=== PATIENT | male | born 1960 | race Caucasian/White ===

== ENCOUNTER → 2018-04-07 | Outpatient (CLI) | payer OTHER ==
[~2018-04-07] MED LIST: AMAN100T PO; AMIO200T PO/NG; AMIO400T5 PO; APIX5TAB PO; APIX5TAB PO/NG; ASPI-515 PO; ASPI-621 PO; ATEN25TA PO; ATEN50TA41 PO; CALC1TAB86 PO; CENTRUM PO; CHOL200024 PO; DIGO250T PO; DOCU-131 PO; FURO-93 PO; GLUC1TAB55 PO; LACT1TAB8 PO; NIAC250T2 PO; NYST1000 PO; OMEG1CAP23 PO; OXYC1TAB7 PO; POTA10TA5 PO; SIMV5TAB5 PO
== END | disposition home or self-care (01) ==
LOC: CFH 10:43
PROVIDERS: ATTEND Family Medicine
DX: M47.894 Other spondylosis, thoracic region (principal); M41.9 Scoliosis, unspecified; M15.0 Primary generalized (osteo)arthritis
CPT/HCPCS: 72072; 72110

== ENCOUNTER 2020-02-12 05:02 | Inpatient (IN) | payer OTHER ==
[~2020-02-12] VITALS: Ht 188 cm; Wt 133.0 kg
[~2020-02-12 05:02] MED LIST changes: -ASPI-621 PO; +ASPI81TA45 PO; +CALC-725 PO; -CALC1TAB86 PO; -DIGO250T PO; +DIGO250T3 PO; -NIAC250T2 PO; +NIAC250T26 PO; +SIMV5TAB14 PO; -SIMV5TAB5 PO
--- NOTE | 2020-02-12 05:10 | NUR ---
THIS IS A 59Y M THAT COMES IN FOR SHARP PAIN "JUST TO THE RIGHT OF MY BELLY BUTTON" X 1 DAY. +NAUSEA, DENIES VOMITTING/DIARRHEA. PT CONNECTED TO ALL MONITORING VSS HR TACHY AWARE.
--- NOTE | 2020-02-12 05:19 | NUR ---
AT BEDSIDE FOR ASSESSMENT
[2020-02-12] MEDS ORDERED: HYDROmorphone 1 MG/ML, 1ML INJ ONE ×2 (05:29→06:06)
[2020-02-12] MEDS ORDERED: ONDANSETRON 2MG/ML, 2ML ONE (05:29)
[2020-02-12] MEDS ORDERED: ONDANSETRON 2MG/ML, 2ML IVPush ONE (05:30)
[2020-02-12] MEDS ORDERED: SODIUM CHLORIDE 0.9% 1,000ML IVBOLUS ONE ×2 (05:30→12:30)
[2020-02-12] MEDS: HYDROmorphone 1 MG/ML, 1ML INJ IVPush PRN ×2 (05:32→06:08)
--- NOTE | 2020-02-12 05:34 | NUR ---
PT MEDICATED PER OCT, 5 RIGHTS VERIFIED.
[2020-02-12 05:45] LABS: MEAN CORPUSCULAR HEMOGLOBIN 35.3 pg (27.5-34.5); MEAN CORPUSCULAR HGB CONC 33.8 g/dL (33.2-36.2); MEAN CORPUSCULAR VOLUME 104.6 fL (81-97); MEAN PLATELET VOLUME 7.2 fL (7.4-10.4); PLATELET COUNT 161 x10^3/uL (130-400); RED BLOOD COUNT 5.01 x10^6/uL (4.38-5.82); RED CELL DISTRIBUTION WIDTH 18.3 % (9.4-14.8)
[2020-02-12 05:52] LABS: INTERNATIONAL NORMALIZED RATIO 1.05 (0.93-1.1); PROTHROMBIN TIME 11.1 Seconds (9.6-11.5)
[2020-02-12 05:54] LABS: ALANINE AMINOTRANSFERASE 31 U/L (12-78); ALBUMIN 3.2 g/dL (3.4-5.0); ANION GAP 15 mmol/L (5-15); CALCIUM 8.8 mg/dL (8.5-10.1); CHLORIDE 107 mmol/L (98-107); CREATININE 0.73 mg/dL (0.7-1.3)
[2020-02-12] MEDS ORDERED: PIPERACILLIN/TAZO/PMX 3.375GM 50 ML ONE (05:54)
[2020-02-12 05:56] LABS: ALKALINE PHOSPHATASE 75 U/L (45-117); BILIRUBIN,TOTAL 1.2 mg/dL (0.2-1.0); TOTAL PROTEIN 7.3 g/dL (6.4-8.2)
[2020-02-12] MEDS ORDERED: PIPERACILLIN/TAZO/PMX 3.375GM 50 ML IVPB ONE (06:00)
[2020-02-12 06:07] LABS: BASOPHILS # (AUTO) 0.03 x10^3/uL (0-0.1); BASOPHILS % (AUTO) 0 % (0-1); EOSINOPHILS # (AUTO) 0.01 x10^3/uL (0-0.4); EOSINOPHILS % (AUTO) 0 % (1-7); LYMPHOCYTES # (AUTO) 1.15 x10^3/uL (1-3.4); LYMPHOCYTES % (AUTO) 5 % (22-44); MD SCAN; MONOCYTES # (AUTO) 0.78 x10^3/uL (0.2-0.8); MONOCYTES % (AUTO) 4 % (2-9); NEUTROPHILS # (AUTO) 20.36 x10^3/uL (1.8-6.8); NEUTROPHILS % (AUTO) 91 % (42-75)
--- NOTE | 2020-02-12 06:09 | NUR ---
ABX STARTED LAB CONFIRMED SECOND SET OF CULTURES HAS BEEN DRAWN BEFORE ABX START AT THIS TIME
--- NOTE | 2020-02-12 06:10 | NUR ---
PT TO CT
[2020-02-12] MEDS ORDERED: OMNIPAQUE 350 MG/ML, 100ML BOTTLE ONE (06:24)
--- NOTE | 2020-02-12 06:30 | NUR ---
PT BACK FROM CT
--- NOTE | 2020-02-12 06:53 | NUR ---
report received from estela dennis.
--- NOTE | 2020-02-12 07:28 | NUR ---
SEPSIS FLOW SHEET COMPLETED AND DISCUSSED WITH EDMD.
[2020-02-12] MEDS ORDERED: MULT-257 PO (08:07)
[2020-02-12] MEDS ORDERED: METO25TA35 PO (08:07)
[2020-02-12] MEDS ORDERED: POTA10TA12 PO (08:07)
[2020-02-12] MEDS ORDERED: EYE HEALTH (08:08)
[2020-02-12] MEDS ORDERED: UBID30CA9 PO (08:08)
[2020-02-12] MEDS ORDERED: CYCL-259 PO (08:09)
[2020-02-12] MEDS ORDERED: FLUO15CR SUBD (08:10)
--- NOTE | 2020-02-12 08:16 | NUR ---
URINAL GIVEN PER REQUEST AT THIS TIME.
--- NOTE | 2020-02-12 08:27 | NUR ---
INDRA ERAZO DID COVID TEST AND SENT TO LAB AT THIS TIME.
--- NOTE | 2020-02-12 08:28 | NUR ---
THIS RN CALLED FOR REPORT AT THIS TIME. PRIMARY RN IS BUSY AND WILL CALL BACK.
--- NOTE | 2020-02-12 08:41 | NUR ---
REPORT GIVEN TO CLAUS ERAZO. ALL QUESTIONS ANSWERED.
--- NOTE | 2020-02-12 09:08 | NUR ---
REPORT GIVEN TO RASHAD ERAZO. ALL QUESTIONS ANSWERED.
[2020-02-12 09:39] VITALS: BP 163/91
[2020-02-12] MEDS ORDERED: FENTANYL PF 250 MCG/5ML ONE (10:14)
[2020-02-12] MEDS ORDERED: MIDAZOLAM 1 MG/ML, 2ML ONE (10:14)
[2020-02-12] MEDS ORDERED: PROPOFOL 10 MG/ML, 20ML ONE (10:15)
[2020-02-12] MEDS ORDERED: PHENYLEPHRINE 10 MG/ML ONE (10:25)
[2020-02-12] MEDS ORDERED: ROCURONIUM 10MG/ML,5ML ONE (10:28)
[2020-02-12] MEDS ORDERED: ONDANSETRON 2MG/ML, 2ML IVPush PRN ×2 (10:30→11:00)
[2020-02-12] MEDS ORDERED: hydrALAzine 20 MG/ML, 1ML IV PRN (10:30)
[2020-02-12] MEDS ORDERED: LABETALOL 5MG/ML, 20ML IV PRN (10:30)
[2020-02-12] MEDS ORDERED: HYDROmorphone 1 MG/ML, 1ML INJ IVPush PRN (10:30)
[2020-02-12] MEDS ORDERED: PROMETHAZINE 25 MG/ML, 1ML IVPush PRN (10:30)
[2020-02-12] MEDS ORDERED: MEPERIDINE/PF 25MG/0.5ML IVPush PRN (10:30)
[2020-02-12] MEDS ORDERED: OXYcodone 5 MG/5 ML ORAL.SOL UDC PO PRN (10:30)
[2020-02-12] MEDS ORDERED: SODIUM CHLORIDE 0.9% 1,000 ML IV SCH ×2 (10:38→11:00)
[2020-02-12] MEDS ORDERED: BUPIVACAINE/PF-EPI 0.5% 1:200K ONE (10:40)
[2020-02-12] MEDS ORDERED: ACETAMINOPHEN 325 MG TABLET PO PRN (11:00)
[2020-02-12] MEDS ORDERED: morphine SULFATE 10 MG/ML, 1ML IVPush PRN (11:00)
[2020-02-12] MEDS ORDERED: HYDROmorphone 2 MG/ML, 1ML IVPush PRN ×2 (11:00→14:30)
[2020-02-12] MEDS ORDERED: PROMETHAZINE 25 MG/ML, 1ML IM PRN (11:00)
[2020-02-12] MEDS ORDERED: hydrALAzine 20 MG/ML, 1ML IVPush PRN (11:00)
[2020-02-12] MEDS ORDERED: LABETALOL 5MG/ML, 20ML IVPush PRN (11:00)
[2020-02-12] MEDS ORDERED: SUCCINYLCHOLINE 20 MG/ML, 10ML ONE (11:13)
[2020-02-12] MEDS ORDERED: METOCLOPRAMIDE 5 MG/ML, 2ML ONE (11:28)
[2020-02-12] MEDS ORDERED: METOPROLOL 1 MG/ML, 5ML ONE (11:39)
[2020-02-12] MEDS ORDERED: hydrALAzine 20 MG/ML, 1ML ONE (11:42)
[2020-02-12] MEDS ORDERED: FENTANYL PF 100 MCG/2ML ONE (12:03)
[2020-02-12] MEDS ORDERED: OXYcodone 5 MG/5 ML ORAL.SOL UDC ONE (12:03)
[2020-02-12] MEDS ORDERED: LABETALOL 5MG/ML, 20ML ONE (12:04)
[2020-02-12] MEDS: FENTANYL PF 100 MCG/2ML IV PRN ×2 (12:05→12:20)
[2020-02-12] MEDS: SODIUM CHLORIDE 0.9% 1,000 ML IV SCH ×2 (13:08→16:10)
[2020-02-12] MEDS: METOPROLOL TARTRATE 100 MG TAB PO SCH (13:12)
[2020-02-12] MEDS: MEROPENEM 1 GM in SODIUM CHLORIDE 0.9% 100 ML IV SCH ×2 (13:18→18:20)
[2020-02-12 13:32] VITALS: BP 118/74
[2020-02-12] MEDS ORDERED: ENOXAPARIN 40 MG/0.4 ML SQ SCH (14:30)
[2020-02-12] MEDS ORDERED: CYCLOBENZAPRINE 10 MG TABLET PO SCH (16:00)
[2020-02-12] MEDS: morphine SULFATE 10 MG/ML, 1ML IV PRN ×3 (16:09→23:00)
[2020-02-12] MEDS: POTASSIUM CHLORIDE 20 MEQ in LACTATED RINGERS 1,000 ML IV SCH (18:27)
[2020-02-12 19:49] VITALS: BP 108/68
[2020-02-13 02:00] LABS: ALANINE AMINOTRANSFERASE 19 U/L (12-78); ALBUMIN 2.3 g/dL (3.4-5.0); ANION GAP 5 mmol/L (5-15); CALCIUM 7.8 mg/dL (8.5-10.1); CHLORIDE 108 mmol/L (98-107); CREATININE 0.87 mg/dL (0.7-1.3)
[2020-02-13 02:02] LABS: ALKALINE PHOSPHATASE 51 U/L (45-117); BILIRUBIN,TOTAL 1.4 mg/dL (0.2-1.0); TOTAL PROTEIN 5.7 g/dL (6.4-8.2)
[2020-02-13 02:14] LABS: MEAN CORPUSCULAR HEMOGLOBIN 35.6 pg (27.5-34.5); MEAN CORPUSCULAR VOLUME 104.5 fL (81-97); MEAN PLATELET VOLUME 7.6 fL (7.4-10.4); PLATELET COUNT 126 x10^3/uL (130-400); RED BLOOD COUNT 4.55 x10^6/uL (4.38-5.82); RED CELL DISTRIBUTION WIDTH 18.1 % (9.4-14.8)
[2020-02-13 02:27] LABS: MD YES
[2020-02-13 02:31] LABS: ANISOCYTOSIS 1+; BAND#(MANUAL) 2.88 x10^3/uL; BANDS%(MANUAL) 14 % (0-7); LYMPH#(MANUAL) 1.03 x10^3/uL (1-3.4); LYMPHS% (MANUAL) 5 % (22-44); MONOS#(MANUAL) 0.82 x10^3/uL (0.3-2.7); MONOS% (MANUAL) 4 % (2-9); SEG#(MANUAL) 15.86 x10^3/uL (1.8-6.8); SEGS% (MANUAL) 77 % (42-75)
[2020-02-13 02:32] LABS: <PLATELET ESTIMATE> DECREASED; <PLT MORPHOLOGY> NORMAL PLT MORPH
[2020-02-13] MEDS: POTASSIUM CHLORIDE 20 MEQ in LACTATED RINGERS 1,000 ML IV SCH ×3 (02:34→20:46)
[2020-02-13 02:35] VITALS: BP 115/75
[2020-02-13] MEDS: MEROPENEM 1 GM in SODIUM CHLORIDE 0.9% 100 ML IV SCH ×3 (02:35→19:16)
[2020-02-13] MEDS: HYDROcodone/APAP 5/325 TABLET PO PRN ×5 (02:41→20:45)
[2020-02-13 06:57] VITALS: BP 111/70
[2020-02-13] MEDS: METOPROLOL TARTRATE 100 MG TAB PO SCH (08:59)
[2020-02-13] MEDS: ENOXAPARIN 40 MG/0.4 ML SQ SCH (11:09)
[2020-02-13] MEDS: morphine SULFATE 10 MG/ML, 1ML IV PRN (11:58)
[2020-02-13 12:38] VITALS: BP_SYST 122; BP_SYST 139; BP_DIAS 78; BP_DIAS 86
[2020-02-13] MEDS ORDERED: DOCUSATE 100 MG CAPSULE PO PRN (16:00)
[2020-02-13 19:43] VITALS: BP 103/67
[2020-02-14] MEDS: HYDROcodone/APAP 5/325 TABLET PO PRN ×6 (01:06→22:57)
[2020-02-14 02:06] VITALS: BP 110/70
[2020-02-14] MEDS: MEROPENEM 1 GM in SODIUM CHLORIDE 0.9% 100 ML IV SCH ×3 (03:16→19:24)
[2020-02-14] MEDS: POTASSIUM CHLORIDE 20 MEQ in LACTATED RINGERS 1,000 ML IV SCH ×2 (04:07→12:29)
[2020-02-14 06:08] LABS: BASOPHILS # (AUTO) 0.05 x10^3/uL (0-0.1); BASOPHILS % (AUTO) 0 % (0-1); EOSINOPHILS # (AUTO) 0.12 x10^3/uL (0-0.4); EOSINOPHILS % (AUTO) 1 % (1-7); LYMPHOCYTES % (AUTO) 9 % (22-44); MD NO; MEAN CORPUSCULAR HEMOGLOBIN 35.5 pg (27.5-34.5); MEAN CORPUSCULAR HGB CONC 33.7 g/dL (33.2-36.2); MEAN CORPUSCULAR VOLUME 105.2 fL (81-97); MEAN PLATELET VOLUME 7.9 fL (7.4-10.4); MONOCYTES # (AUTO) 0.42 x10^3/uL (0.2-0.8); MONOCYTES % (AUTO) 3 % (2-9); NEUTROPHILS # (AUTO) 12.43 x10^3/uL (1.8-6.8); NEUTROPHILS % (AUTO) 87 % (42-75); PLATELET COUNT 136 x10^3/uL (130-400); RED BLOOD COUNT 4.28 x10^6/uL (4.38-5.82); RED CELL DISTRIBUTION WIDTH 18.6 % (9.4-14.8)
[2020-02-14 06:21] LABS: ANION GAP 6 mmol/L (5-15); CALCIUM 8.5 mg/dL (8.5-10.1); CHLORIDE 105 mmol/L (98-107)
[2020-02-14 06:26] LABS: ALANINE AMINOTRANSFERASE 15 U/L (12-78); ALKALINE PHOSPHATASE 53 U/L (45-117); BILIRUBIN,TOTAL 0.8 mg/dL (0.2-1.0); CREATININE 0.65 mg/dL (0.7-1.3); TOTAL PROTEIN 5.7 g/dL (6.4-8.2)
[2020-02-14 06:51] VITALS: BP 125/78
[2020-02-14] MEDS: METOPROLOL TARTRATE 100 MG TAB PO SCH (09:20)
[2020-02-14] MEDS: MAGNESIUM HYDROXIDE 8%, 30ML UDC PO PRN (10:05)
[2020-02-14] MEDS: ENOXAPARIN 40 MG/0.4 ML SQ SCH (11:25)
[2020-02-14 12:48] VITALS: BP 102/70
[2020-02-14] MEDS: LACTOBACILLUS CHEW TABLET PO SCH ×2 (14:57→19:24)
[2020-02-14 18:45] VITALS: BP 113/70
[2020-02-15 01:56] VITALS: BP 115/72
[2020-02-15] MEDS: MEROPENEM 1 GM in SODIUM CHLORIDE 0.9% 100 ML IV SCH ×3 (02:45→18:46)
[2020-02-15] MEDS: HYDROcodone/APAP 5/325 TABLET PO PRN ×6 (02:45→23:12)
[2020-02-15] MEDS: POTASSIUM CHLORIDE 20 MEQ in LACTATED RINGERS 1,000 ML IV SCH (04:26)
[2020-02-15] MEDS: MAGNESIUM HYDROXIDE 8%, 30ML UDC PO PRN (04:26)
[2020-02-15 06:20] LABS: MEAN CORPUSCULAR HEMOGLOBIN 35.7 pg (27.5-34.5); MEAN CORPUSCULAR HGB CONC 34.4 g/dL (33.2-36.2); MEAN CORPUSCULAR VOLUME 103.8 fL (81-97); MEAN PLATELET VOLUME 7.7 fL (7.4-10.4); PLATELET COUNT 150 x10^3/uL (130-400); RED BLOOD COUNT 4.11 x10^6/uL (4.38-5.82); RED CELL DISTRIBUTION WIDTH 18.4 % (9.4-14.8)
[2020-02-15 06:24] LABS: ALANINE AMINOTRANSFERASE 12 U/L (12-78); ALBUMIN 1.8 g/dL (3.4-5.0); ANION GAP 4 mmol/L (5-15); CALCIUM 8.3 mg/dL (8.5-10.1); CHLORIDE 102 mmol/L (98-107); CREATININE 0.62 mg/dL (0.7-1.3)
[2020-02-15 06:27] LABS: ALKALINE PHOSPHATASE 51 U/L (45-117); BILIRUBIN,TOTAL 0.6 mg/dL (0.2-1.0); TOTAL PROTEIN 5.5 g/dL (6.4-8.2)
[2020-02-15 07:20] LABS: BASOPHILS # (AUTO) 0.03 x10^3/uL (0-0.1); BASOPHILS % (AUTO) 0 % (0-1); EOSINOPHILS # (AUTO) 0.15 x10^3/uL (0-0.4); EOSINOPHILS % (AUTO) 1 % (1-7); LYMPHOCYTES # (AUTO) 0.76 x10^3/uL (1-3.4); LYMPHOCYTES % (AUTO) 7 % (22-44); MD SCAN; MONOCYTES # (AUTO) 0.62 x10^3/uL (0.2-0.8); MONOCYTES % (AUTO) 5 % (2-9); NEUTROPHILS # (AUTO) 10.09 x10^3/uL (1.8-6.8); NEUTROPHILS % (AUTO) 87 % (42-75)
[2020-02-15] MEDS: LACTOBACILLUS CHEW TABLET PO SCH ×3 (08:43→21:16)
[2020-02-15] MEDS: METOPROLOL TARTRATE 100 MG TAB PO SCH (08:43)
[2020-02-15 09:01] VITALS: BP 155/77
[2020-02-15] MEDS: ENOXAPARIN 40 MG/0.4 ML SQ SCH (11:33)
[2020-02-15] MEDS ORDERED: PINK LADY ENEMA 490 ML BOTTLE PR ONE (12:00)
[2020-02-15] MEDS: LACTATED RINGERS 1,000 ML IV SCH (15:34)
[2020-02-15 15:59] VITALS: BP 141/93
[2020-02-15 19:52] VITALS: BP 119/74
[2020-02-15 22:11] VITALS: BP 130/84
[2020-02-16 00:56] VITALS: BP 136/81
[2020-02-16] MEDS: MEROPENEM 1 GM in SODIUM CHLORIDE 0.9% 100 ML IV SCH ×3 (03:06→21:00)
[2020-02-16] MEDS: HYDROcodone/APAP 5/325 TABLET PO PRN ×6 (03:10→23:24)
[2020-02-16] MEDS: LACTATED RINGERS 1,000 ML IV SCH (04:47)
[2020-02-16 05:10] LABS: MEAN CORPUSCULAR HEMOGLOBIN 35.5 pg (27.5-34.5); MEAN CORPUSCULAR HGB CONC 34.3 g/dL (33.2-36.2); MEAN CORPUSCULAR VOLUME 103.7 fL (81-97); MEAN PLATELET VOLUME 7.4 fL (7.4-10.4); PLATELET COUNT 163 x10^3/uL (130-400); RED BLOOD COUNT 4.35 x10^6/uL (4.38-5.82); RED CELL DISTRIBUTION WIDTH 18.1 % (9.4-14.8)
[2020-02-16 05:17] LABS: ALANINE AMINOTRANSFERASE 12 U/L (12-78); ALBUMIN 1.9 g/dL (3.4-5.0); ANION GAP 10 mmol/L (5-15); CALCIUM 8.1 mg/dL (8.5-10.1); CHLORIDE 103 mmol/L (98-107); CREATININE 0.46 mg/dL (0.7-1.3)
[2020-02-16 05:19] LABS: ALKALINE PHOSPHATASE 59 U/L (45-117); BILIRUBIN,TOTAL 0.6 mg/dL (0.2-1.0); TOTAL PROTEIN 5.7 g/dL (6.4-8.2)
[2020-02-16 05:50] LABS: BASOPHILS # (AUTO) 0.01 x10^3/uL (0-0.1); BASOPHILS % (AUTO) 0 % (0-1); EOSINOPHILS # (AUTO) 0.16 x10^3/uL (0-0.4); EOSINOPHILS % (AUTO) 2 % (1-7); LYMPHOCYTES # (AUTO) 0.54 x10^3/uL (1-3.4); LYMPHOCYTES % (AUTO) 5 % (22-44); MD SCAN; MONOCYTES # (AUTO) 0.22 x10^3/uL (0.2-0.8); MONOCYTES % (AUTO) 2 % (2-9); NEUTROPHILS # (AUTO) 9.01 x10^3/uL (1.8-6.8); NEUTROPHILS % (AUTO) 91 % (42-75)
[2020-02-16 06:19] VITALS: BP 144/92
[2020-02-16 09:10] LABS: CLOSTRIDIUM DIFFICILE ANTIGEN POSITIVE; CLOSTRIDIUM DIFFICILE TOXIN NEGATIVE (Negative)
[2020-02-16] MEDS: METOPROLOL TARTRATE 100 MG TAB PO SCH (09:18)
[2020-02-16] MEDS: LACTOBACILLUS CHEW TABLET PO SCH (09:18)
[2020-02-16] MEDS ORDERED: POTASSIUM PHOSPHATE 44 MEQ in SODIUM CHLORIDE 0.9% 500 ML IV ONE (09:30)
[2020-02-16 12:27] VITALS: BP 131/89
[2020-02-16 19:33] VITALS: BP 165/103
[2020-02-16] MEDS: DOCUSATE 100 MG CAPSULE PO SCH (20:59)
[2020-02-16 21:03] VITALS: BP 146/87
[2020-02-17 00:58] VITALS: BP 139/80
[2020-02-17] MEDS: HYDROcodone/APAP 5/325 TABLET PO PRN ×3 (03:36→13:32)
[2020-02-17] MEDS: MEROPENEM 1 GM in SODIUM CHLORIDE 0.9% 100 ML IV SCH (04:45)
[2020-02-17 04:46] LABS: CHLORIDE 101 mmol/L (98-107)
[2020-02-17 04:51] LABS: BASOPHILS # (AUTO) 0.03 x10^3/uL (0-0.1); BASOPHILS % (AUTO) 0 % (0-1); EOSINOPHILS % (AUTO) 1 % (1-7); LYMPHOCYTES # (AUTO) 0.74 x10^3/uL (1-3.4); LYMPHOCYTES % (AUTO) 10 % (22-44); MD NO; MEAN CORPUSCULAR HEMOGLOBIN 35.1 pg (27.5-34.5); MEAN CORPUSCULAR HGB CONC 34.1 g/dL (33.2-36.2); MEAN CORPUSCULAR VOLUME 102.9 fL (81-97); MEAN PLATELET VOLUME 7.3 fL (7.4-10.4); MONOCYTES # (AUTO) 0.66 x10^3/uL (0.2-0.8); MONOCYTES % (AUTO) 9 % (2-9); NEUTROPHILS # (AUTO) 6.26 x10^3/uL (1.8-6.8); NEUTROPHILS % (AUTO) 80 % (42-75); PLATELET COUNT 174 x10^3/uL (130-400); RED BLOOD COUNT 4.38 x10^6/uL (4.38-5.82); RED CELL DISTRIBUTION WIDTH 17.9 % (9.4-14.8)
[2020-02-17 05:06] LABS: ALANINE AMINOTRANSFERASE 12 U/L (12-78); ALBUMIN 1.8 g/dL (3.4-5.0); ALKALINE PHOSPHATASE 60 U/L (45-117); ANION GAP 8 mmol/L (5-15); BILIRUBIN,TOTAL 0.6 mg/dL (0.2-1.0); CALCIUM 8.4 mg/dL (8.5-10.1); TOTAL PROTEIN 5.7 g/dL (6.4-8.2)
[2020-02-17 06:54] VITALS: BP 132/84
[2020-02-17] MEDS ORDERED: POTASSIUM CHLORIDE 20 MEQ TAB.ER.PRT PO SCH (08:30)
[2020-02-17] MEDS: DOCUSATE 100 MG CAPSULE PO SCH (09:36)
[2020-02-17] MEDS: METOPROLOL TARTRATE 100 MG TAB PO SCH (09:36)
[2020-02-17] MEDS ORDERED: metroNIDAZOLE 500 MG TABLET PO SCH (10:30)
[2020-02-17] MEDS ORDERED: CEFDINIR 300 MG CAPSULE PO SCH (10:30)
[2020-02-17 10:42] VITALS: BP 156/98
[2020-02-17 13:29] VITALS: BP 117/81
[2020-02-17] MEDS ORDERED: CEFD300C37 PO (13:40)
[2020-02-17] MEDS ORDERED: METR500T PO (13:40)
[2020-02-17] MEDS ORDERED: HYDR-3240 PO (14:26)
== END 2020-02-17 14:46 | disposition home or self-care (01) | DRG 853 ==
LOC: ED 05:39 → EDIP 07:34 → 4WST 09:35 → 3N 02-15 22:06
PROVIDERS: ADMIT Hospitalist; ATTEND Hospitalist
PROC: 0DTJ4ZZ Resection of Appendix, Percutaneous Endoscopic Approach (ICD-10-PCS; 2020-02-12)
PROC: 0D9J40Z Drainage of Appendix with Drainage Device, Percutaneous Endoscopic Approach (ICD-10-PCS; principal; 2020-02-12 11:00)
DX: A41.9 Sepsis, unspecified organism (principal); K35.33 Acute appendicitis with perforation, localized peritonitis, and gangrene, with abscess; E87.2 Acidosis; K56.7 Ileus, unspecified; E66.01 Morbid (severe) obesity due to excess calories; R65.20 Severe sepsis without septic shock; E83.39 Other disorders of phosphorus metabolism; E86.0 Dehydration; I48.91 Unspecified atrial fibrillation; K57.90 Diverticulosis of intestine, part unspecified, without perforation or abscess without bleeding; K76.0 Fatty (change of) liver, not elsewhere classified; R73.9 Hyperglycemia, unspecified; T44.7X6A Underdosing of beta-adrenoreceptor antagonists, initial encounter; Z86.14 Personal history of Methicillin resistant Staphylococcus aureus infection; Z95.0 Presence of cardiac pacemaker; Z68.37 Body mass index [BMI] 37.0-37.9, adult; Z98.1 Arthrodesis status; Z03.818 Encounter for observation for suspected exposure to other biological agents ruled out
CPT/HCPCS: 36415; 74018; 74177; 80053; 83605; 83690; 83735; 84100; 84145; 85025; 85610; 85730; 87040; 87324; 87635; 93005; 96361; 96365; 96375; G0378; J1170; J1650; J2185; J2250; J2405; J2543; J2704; J3010; J3480; Q9967; J0330; J0360; J2270; J2370; J2765; J7030; J7040; J7120

== ENCOUNTER → 2020-03-01 | Outpatient (CLI) | payer OTHER ==
[~2020-03-01] MED LIST changes: +CEFD300C37 PO; +CYCL-259 PO; +EYE HEALTH; +FLUO15CR SUBD; +HYDR-3240 PO; +METO25TA35 PO; +METR500T PO; +MULT-257 PO; +OMNIPAQUE 350 MG/ML, 100ML BOTTLE ONE; +POTA10TA12 PO; +UBID30CA9 PO
== END | disposition home or self-care (01) ==
LOC: CFH 11:16
PROVIDERS: ATTEND Surgery
DX: K35.33 Acute appendicitis with perforation, localized peritonitis, and gangrene, with abscess (principal); J98.11 Atelectasis; J90 Pleural effusion, not elsewhere classified; J98.4 Other disorders of lung; Z90.49 Acquired absence of other specified parts of digestive tract
CPT/HCPCS: 74177; Q9967

== ENCOUNTER → 2020-04-06 | Outpatient (CLI) | payer OTHER | END | disposition home or self-care (01) | LOC: CFH 09:28 | PROVIDERS: ATTEND Surgery | DX: K35.20 Acute appendicitis with generalized peritonitis, without abscess (principal) | CPT/HCPCS: 74177; 82565; Q9967 ==

== ENCOUNTER 2020-10-22 09:09 | Day surgery (SDC) | payer OTHER ==
[~2020-10-22] VITALS: Ht 188 cm; Wt 127.3 kg
[~2020-10-22 09:09] MED LIST changes: -ASPI-515 PO; +ASPI-963 PO; -CYCL-259 PO; +CYCL10TA2 PO; +HYDR-1067 PO; -HYDR-3240 PO; -OMNIPAQUE 350 MG/ML, 100ML BOTTLE ONE
[2020-10-22] MEDS ORDERED: SODIUM CHLORIDE 0.9% 1,000 ML IV SCH (09:30)
[2020-10-22 09:35] VITALS: BP 95/68
[2020-10-22] MEDS ORDERED: PLEASE ENTER HEIGHT AND WEIGHT MC SCH (10:00)
[2020-10-22 10:05] LABS: ANION GAP 6 mmol/L (5-15); CHLORIDE 108 mmol/L (98-107); CREATININE 0.87 mg/dL (0.7-1.3)
[2020-10-22] MEDS ORDERED: CALC-55 PO (10:29)
[2020-10-22] MEDS ORDERED: MAGN400T36 PO (10:29)
[2020-10-22 10:31] LABS: BASOPHILS % (AUTO) 2 % (0-1); EOSINOPHILS % (AUTO) 4 % (1-7); LYMPHOCYTES % (AUTO) 23 % (22-44); MD NO; MEAN CORPUSCULAR HEMOGLOBIN 36.6 pg (27.5-34.5); MEAN CORPUSCULAR HGB CONC 35.1 g/dL (33.2-36.2); MEAN PLATELET VOLUME 7.5 fL (7.4-10.4); MONOCYTES % (AUTO) 10 % (2-9); NEUTROPHILS % (AUTO) 61 % (42-75); PLATELET COUNT 170 x10^3/uL (130-400); RED CELL DISTRIBUTION WIDTH 17.3 % (9.4-14.8)
[2020-10-22] MEDS ORDERED: CEFAZOLIN 1,000 MG ONE (10:47)
[2020-10-22] MEDS ORDERED: FENTANYL PF 100 MCG/2ML ONE (10:47)
[2020-10-22] MEDS ORDERED: CEFAZOLIN PMX 1GM/50ML 50 ML ONE (10:47)
[2020-10-22] MEDS ORDERED: MIDAZOLAM 1 MG/ML, 5ML ONE (10:47)
[2020-10-22] MEDS ORDERED: LIDOCAINE 1%, 20ML ONE (10:47)
[2020-10-22] MEDS ORDERED: HOLD MEDICATION MC PRN (12:00)
[2020-10-22] MEDS ORDERED: ACETAMINOPHEN 325 MG TABLET PO PRN (12:00)
[2020-10-22] MEDS ORDERED: CYCLOBENZAPRINE 10 MG TABLET PO SCH (16:00)
[2020-10-22] MEDS ORDERED: SODIUM CHLORIDE FLUSH 10ML SYR IVF SCH (21:00)
[2020-10-23] MEDS ORDERED: ASPIRIN 81 MG TABLET EC PO SCH (09:00)
[2020-10-23] MEDS ORDERED: POTASSIUM CHLORIDE 10 MEQ TABLET.ER PO SCH (09:00)
[2020-10-23] MEDS ORDERED: MULTIVITAMIN 1 TABLET PO SCH (09:00)
[2020-10-23] MEDS ORDERED: METOPROLOL TARTRATE 25 MG TAB PO SCH (09:00)
== END 2020-10-22 13:18 | disposition home or self-care (01) ==
LOC: CACL 09:09
PROVIDERS: ATTEND Internal Medicine Cardiovascular Disease
DX: Z45.02 Encounter for adjustment and management of automatic implantable cardiac defibrillator (principal); I48.0 Paroxysmal atrial fibrillation; Z79.01 Long term (current) use of anticoagulants; Z79.82 Long term (current) use of aspirin; Z79.899 Other long term (current) drug therapy; Z88.0 Allergy status to penicillin
CPT/HCPCS: 33264; 36415; 71046; 80048; 85025; 99156; C1882; J0690; J2250; J3010; C2621

== ENCOUNTER 2021-01-16 17:37 | Emergency (ER) | payer OTHER ==
[~2021-01-16] VITALS: Ht 188 cm; Wt 125.5 kg
[~2021-01-16 17:37] MED LIST changes: +CALC-55 PO; -HYDR-1067 PO; +HYDR-2214 PO; +MAGN400T36 PO
[2021-01-16] MEDS ORDERED: PLEASE ENTER ALLERGIES MC SCH (18:00)
[2021-01-16] MEDS ORDERED: SODIUM CHLORIDE FLUSH 10ML SYR IVF ONE (18:00)
[2021-01-16 18:22] LABS: BASOPHILS % (AUTO) 1 % (0-1); EOSINOPHILS % (AUTO) 1 % (1-7); LYMPHOCYTES % (AUTO) 25 % (22-44); MEAN CORPUSCULAR HEMOGLOBIN 34.7 pg (27.5-34.5); MEAN CORPUSCULAR HGB CONC 34.8 g/dL (33.2-36.2); MEAN PLATELET VOLUME 8.1 fL (7.4-10.4); MONOCYTES % (AUTO) 8 % (2-9); NEUTROPHILS % (AUTO) 66 % (42-75); PLATELET COUNT 186 x10^3/uL (130-400); RED BLOOD COUNT 5.67 x10^6/uL (4.38-5.82); RED CELL DISTRIBUTION WIDTH 15.4 % (9.4-14.8)
[2021-01-16 18:23] LABS: MD NO
[2021-01-16 18:27] LABS: ALANINE AMINOTRANSFERASE 41 U/L (12-78); ALBUMIN 3.8 g/dL (3.4-5.0); ANION GAP 8 mmol/L (5-15); CALCIUM 9.2 mg/dL (8.5-10.1); CHLORIDE 106 mmol/L (98-107); CREATININE 0.84 mg/dL (0.7-1.3)
--- NOTE | 2021-01-16 18:33 | NUR ---
PT TO RM FROM LOBBY
[2021-01-16 18:38] LABS: ALKALINE PHOSPHATASE 67 U/L (45-117); TOTAL PROTEIN 7.3 g/dL (6.4-8.2); TROPONIN I < 0.015 ng/mL (0.000-0.045)
--- NOTE | 2021-01-16 18:45 | NUR ---
PT C/O OF HEART RACING SINCE 0200 THIS MORNING. STATES HE WAS HAVING HEART PALPITATIONS. REPORTS THAT CHIEF LEGAL OFFICER SAID HE WAS IN AFIB AT 0200. PT STATES NO SOB OR CP CURRENTLY. PT IN NAD. ATTACHED TO CARDIAC/SP02/BP MONITORS. VSS WITH ELEVATED HR. BED IN LOW POSITION. CALL LIGHT WITHIN REACH.
[2021-01-16] MEDS ORDERED: DILTIAZEM 5 MG/ML, 5ML IVPush ONE (19:30)
[2021-01-16] MEDS ORDERED: PROPOFOL 10 MG/ML, 20ML IVPush ONE ×2 (19:30→20:00)
[2021-01-16] MEDS ORDERED: PROPOFOL 10 MG/ML, 20ML ONE (19:31)
--- NOTE | 2021-01-16 20:54 | NUR ---
LATE ENTRY DUE TO PT CARE. PT TO BE CARDIOVERTED. SAFETY PRECAUTIONS IN PLACE FOR PROCEDURE. PROCEDURE BEGAN 2014. PROPOFOL 100 MG GIVEN 2014. PT SHOCKED AT 2016. PT TOLERATED PROCEDURE WELL. PT MONITORING IN PLACE POST-PROCEDURE. SEE PROCEDURE PAPER CHARTING FOR MORE DETAILS. PT CURRENTLY A&OX4. SPOUSE AT BEDSIDE. ALFREDO. BED IN LOW POSITION. CALL LIGHT WITHIN REACH. ALL NEEDS MET AT THIS TIME. AWAITING DISCHARGE.
[2021-01-16 21:24] VITALS: BP 126/67
== END 2021-01-16 21:39 ==
LOC: ED 18:07
DX: I48.0 Paroxysmal atrial fibrillation (principal); R00.0 Tachycardia, unspecified; R07.9 Chest pain, unspecified
CPT/HCPCS: 36415; 71045; 80053; 83735; 84443; 84484; 85025; 92960; 93005; 99285